=== PATIENT | male | born 1950 | race Hispanic/Latino ===

== ENCOUNTER 2017-11-06 17:39 | Inpatient (IN) | payer MEDICARE, OTHER ==
--- NOTE | 2017-11-06 18:34 | ED PDOC ---
Arrival/HPI - General Time Seen by Provider: 11/06/17 17:39 Historian: Patient - History of Present Illness Narrative History of Present Illness (Text): 11/06/17 18:37 A 67 year old male, whose past medical history includes renal insufficiency, was sent to the emergency department from Urologist, Dr. Chi, for evaluation. Patient had landaverde catheter placed in office for chronic retention. Patient in the emergency department for IV fluids and observtaion for postobstructive diuresis. Patient denies any other complaints at this time. 11/06/17 20:16 Symptom Onset: Sudden Symptom Course: Unchanged Activities at Onset: Rest Associated Symptoms (Text): none Past Medical History - Provider Review Nursing Documentation Reviewed: Yes Family/Social History - Physician Review Nursing Documentation Reviewed: Yes Family/Social History: No Known Family HX Allergies/Home Meds Allergies/Adverse Reactions: Allergies No Known Allergies Allergy (Verified 11/06/17 18:30) Review of Systems - Physician Review All systems were reviewed & negative as marked: Yes - Review of Systems Gastrointestinal: absent: Abdominal Pain Genitourinary Male: Other (chronic retention) Physical Exam Vital Signs Reviewed: Yes Vital Signs Temp Pulse Resp BP Pulse Ox 11/06/17 21:35 90 18 133/80 99 11/06/17 18:30 98.7 F 99 H 16 167/108 H 99 Appearance: Positive for: Well-Appearing, Non-Toxic, Comfortable Pain Distress: None Mental Status: Positive for: Alert and Oriented X 3 - Systems Exam Head: Present: Atraumatic, Normocephalic Pupils: Present: PERRL Extroacular Muscles: Present: EOMI Conjunctiva: Present: Normal Mouth: Present: Moist Mucous Membranes Neck: Present: Normal Range of Motion Respiratory/Chest: Present: Clear to Auscultation, Good Air Exchange. No: Respiratory Distress, Accessory Muscle Use Cardiovascular: Present: Regular Rate and Rhythm, Normal S1, S2. No: Murmurs Abdomen: Present: Normal Bowel Sounds. No: Tenderness, Distention, Peritoneal Signs Back: Present: Normal Inspection Upper Extremity: Present: Normal Inspection. No: Cyanosis, Edema Lower Extremity: Present: Normal Inspection, Other (leg bag with bloody urine). No: Edema Neurological: Present: GCS=15, CN II-XII Intact, Speech Normal Skin: Present: Warm, Dry, Normal Color. No: Rashes Psychiatric: Present: Alert, Oriented x 3, Normal Insight, Normal Concentration Medical Decision Making ED Course and Treatment: 11/06/17 18:31 Impression: A 67 year old male sent from Urologist from evaluation. Patient has landaverde catheter placed in office for chronic retention. Plan: -- labs -- Urinalysis -- IV fluids -- Reassess and disposition Progress Notes: - Lab Interpretations Microbiology Results: Microbiology Results 11/06/17 12:21 Urine,Clean Catch Urine Culture - Final No Growth (<1,000 CFU/ML) Lab Results: 11/07/17 06:30 11/07/17 06:30 Lab Results 11/07/17 06:30: Sodium 140, Potassium 4.8, Chloride 111 H, Carbon Dioxide 19 L, Anion Gap 15, BUN 56 H, Creatinine 5.0 H, Est GFR ( Amer) 14, Est GFR ( Non-Af Amer) 12, Random Glucose 100, Calcium 8.4, Phosphorus 4.4, Magnesium 2.0 , Total Bilirubin 0.5, AST 32, ALT 27, Alkaline Phosphatase 60, Total Protein 6.6, Albumin 3.6, Globulin 3.0, Albumin/Globulin Ratio 1.2 11/07/17 06:30: WBC 8.3 D, RBC 4.32, Hgb 12.0 L, Hct 37.5 L, MCV 86.8, MCH 27.8 , MCHC 32.0, RDW 13.3, Plt Count 137, MPV 10.0, Gran % 77.7 H, Lymph % (Auto) 14.7 L, [place] % (Auto) 7.0 H, Eos % (Auto) 0.4 L, Baso % (Auto) 0.2, Gran # 6.48 , Lymph # 1.2, [place] # 0.6, Eos # 0.0, Baso # 0.02 11/07/17 02:45: Urine Osmolality 343, Ur Random Creatinine 35, Ur Random Sodium 111, Ur Random Potassium 24.6 11/06/17 19:26: Urine Color Red, Urine Appearance Turbid, Urine pH 7.5, Ur Specific [place] 1.015, Urine Protein >=300 H, Urine Glucose (UA) 100 H, Urine Ketones Trace H, Urine Blood Large H, Urine Nitrate Negative, Urine Bilirubin Negative, Urine Urobilinogen 1.0 H, Ur Leukocyte Esterase Small H, Urine RBC Tntc, Urine WBC 2 - 5, Ur Epithelial Cells 1 - 3 11/06/17 18:49: Sodium 141, Potassium 4.8, Chloride 106, Carbon Dioxide 22, Anion Gap 18, BUN 59 H, Creatinine 5.0 H, Est GFR ( Amer) 14, Est GFR ( Non-Af Amer) 12, Random Glucose 101, Calcium 9.0, Total Bilirubin 0.4, AST 16 L , ALT 30, Alkaline Phosphatase 67, Total Protein 7.5, Albumin 4.3, Globulin 3.2 , Albumin/Globulin Ratio 1.3 11/06/17 18:49: PT 10.9, INR 1.00, APTT 25.7 11/06/17 18:49: WBC 5.3, RBC 4.53, Hgb 12.7 L, Hct 39.7 L, MCV 87.6, MCH 28.0, MCHC 32.0, RDW 13.4, Plt Count 134, MPV 9.5, Gran % 68.8 H, Lymph % (Auto) 21.2 L, [place] % (Auto) 7.9 H, Eos % (Auto) 1.7, Baso % (Auto) 0.4, Gran # 3.67, Lymph # 1.1 L, [place] # 0.4, Eos # 0.1, Baso # 0.02 11/06/17 18:23: Serum Osmolality 315 H I have reviewed the lab results: Yes - Medication Orders Current Medication Orders: Discontinued Medications Amlodipine Besylate (Norvasc) 5 mg PO DAILY [facility] Last Admin: 11/08/17 09:43 Dose: 5 mg Famotidine (Pepcid) 20 mg PO 1000,2200 [facility] Last Admin: 11/08/17 09:43 Dose: 20 mg Hydralazine HCl (Apresoline) 5 mg IVP Q6H PRN PRN Reason: SBP>180 Last Admin: 11/07/17 00:29 Dose: 5 mg IVP Administration Document 11/07/17 00:29 (Rec: 11/07/17 00:31 [id number] Charges for Administration # of IVP Administrations 1 JAN Pulse and Blood Pressure Document 11/07/17 00:29 (Rec: 11/07/17 00:31 [place] [id number]) Pulse Pulse Rate (60-90) 98 Blood Pressure Blood Pressure (100/60-150/90) 184/99 Sodium Chloride (Sodium Chloride 0.9%) 1,000 mls @ 100 mls/hr IV .Q10H [facility] Last Admin: 11/07/17 14:59 Dose: Sodium Chloride (Sodium Chloride 0.9%) 1,000 mls @ 100 mls/hr IV .Q10H [facility] Last Admin: 11/07/17 14:58 Dose: 100 mls/hr eMAR Start Stop Document 11/07/17 14:58 LMN (Rec: 11/07/17 14:58 LMN [id number]) Intravenous Solution Start Date 11/07/17 Start Time 06:30 Ceftriaxone Sodium 1 gm/ (Sodium Chloride) 100 mls @ 100 mls/hr IVPB Q24H [facility] PRN Reason: Protocol Last Admin: 11/07/17 15:34 Dose: 100 mls/hr eMAR Start Stop Document 11/07/17 15:34 LMN (Rec: 11/07/17 15:36 LMN [id number]) Intravenous Solution Start Date 11/07/17 Start Time 15:34 Sodium Chloride (Sodium Chloride 0.45%) 1,000 mls @ 100 mls/hr IV .Q10H [facility] Last Admin: 11/07/17 16:42 Dose: 100 mls/hr eMAR Start Stop Document 11/07/17 16:42 LMN (Rec: 11/07/17 16:43 LMN [id number]) Intravenous Solution Start Date 11/07/17 Start Time 16:43 - Scribe Statement The provider has reviewed the documentation as recorded by the Ajit Wynne Provider Scribe Attestation: All medical record entries made by the Scribadrianne were at my direction and personally dictated by me. I have reviewed the chart and agree that the record accurately reflects my personal performance of the history, physical exam, medical decision making, and the department course for this patient. I have also personally directed, reviewed, and agree with the discharge instructions and disposition. Disposition/Present on Arrival - Present on Arrival Any Indicators Present on Arrival: No - Disposition Have Diagnosis and Disposition been Completed?: Yes Diagnosis: Urinary retention, Renal insufficiency Disposition: HOSPITALIZED Disposition Time: 07:30 Condition: STABLE
[2017-11-06] MEDS: Sodium Chloride 0.9% 1,000 ML IV SCH (18:58)
[2017-11-06 19:03] LABS: BASO # 0.02 K/mm3 (0.0-2.0); BASO % 0.4 % (0.0-3.0); EOS # 0.1 (0.0-0.7); EOS % 1.7 % (1.5-5.0); GRAN # 3.67 (1.4-6.5); GRAN % 68.8 % (50.0-68.0); HEMOGLOBIN 12.7 g/dL (14.0-18.0); LYMPH # 1.1 (1.2-3.4); LYMPH % 21.2 % (22.0-35.0); MEAN CELL VOLUME 87.6 fl (80.0-105.0); MEAN PLATELET VOLUME 9.5 fl (7.0-11.0); MONO # 0.4 (0.1-0.6); MONO % 7.9 % (1.0-6.0); RBC 4.53 10^6/uL (3.5-6.1); RED CELL DISTRIBUTION WIDTH 13.4 % (11.5-14.5); WHITE BLOOD COUNT 5.3 10^3/ul (4.5-11.0)
[2017-11-06 19:20] LABS: PROTHROMBIN TIME 10.9 SECONDS (9.4-12.5)
[2017-11-06 19:21] LABS: PARTIAL THROMBOPLASTIN TIME 25.7 Seconds (25.1-36.5)
[2017-11-06 19:45] LABS: ALB/GLOB RATIO 1.3 (1.1-1.8); ALBUMIN 4.3 g/dL (3.0-4.8)
[2017-11-06 19:47] LABS: PH,URINE 7.5 (4.7-8.0); URINE APPEARANCE TURBID (CLEAR); URINE BILIRUBIN NEGATIVE (NEGATIVE); URINE BLOOD LARGE (NEGATIVE); URINE COLOR RED (YELLOW); URINE GLUCOSE (UA) 100 mg/dL (NEGATIVE); URINE LEUKOCYTE ESTERASE SMALL Leu/uL (NEGATIVE); URINE PROTEIN >=300 mg/dL (<30 mg/dL)
[2017-11-06] MEDS ORDERED: cefTRIAXone 2 GM IN NS 2 GM/100 ML BAG IVPB STA (19:48)
[2017-11-06 19:51] LABS: URINE NITRATE NEGATIVE (NEGATIVE); URINE RBC TNTC /hpf (0-2)
--- NOTE | 2017-11-06 21:01 | CP.PCM.HP ---
<Lorraine Harvey - Last Filed: 11/06/17 20:54> History of Present Illness - History of Present Illness History of Present Illness: Lorraine Harvey DO PGY1 - Internal Medicine H&P CC: s/p landaverde placement for obstruction HPI: 67 yo M with no known PMH presents after placement of landaverde catheter in outpatient urologists office. He reports that about 2 months ago, he was feeling fatigued and weak, and went to see a doctor (Dr. Guzmán) for the first time in 50 years. He had a blood test at that time and was told he had kidney disease, and was sent to a plate mill hand (Dr. Amezquita) who ordered a renal ultrasound. The ultrasound showed urinary retention, and he was then referred to a urologist (Dr. Chi) who he saw for the first time today, and had landaverde placed and sent to the hospital. Currently, he denies any fever, chills, dysuria, abdominal pain, back pain, nausea, vomiting, diarrhea, constipation. He also denies chest pain, shortness of breath, palpitations, headache. Remaineder of 12 point ROS was negative. PMH: Denies PSH: Vasectomy 1970 Soc: 47 PYH, current active smoker. Drinks 5 cans of beer 1-2 times weekly. Denies IVDU, prior cocaine use many years ago. FHx: Father with HTN and renal failure. Multiple family members with DM and HTN. All: NKDA Present on Admission - Present on Admission Any Indicators Present on Admission: Yes History of DVT/PE: No History of Uncontrolled Diabetes: No Urinary Catheter: Yes (Placed today) Decubitus Ulcer Present: No Past Patient History - Past Social History Smoking Status: Smoker Currrent Status Unknown - CARDIAC Hx Cardiac Disorders: No - PULMONARY Hx Respiratory Disorders: No - NEUROLOGICAL Hx Neurological Disorder: No - HEENT Hx HEENT Problems: No - RENAL Hx Chronic Kidney Disease: Yes - ENDOCRINE/METABOLIC Hx Endocrine Disorders: No - HEMATOLOGICAL/ONCOLOGICAL Hx Blood Disorders: No - INTEGUMENTARY Hx Dermatological Problems: No - MUSCULOSKELETAL/RHEUMATOLOGICAL Hx Musculoskeletal Disorders: No - GASTROINTESTINAL Hx Gastrointestinal Disorders: No - GENITOURINARY/GYNECOLOGICAL Hx Genitourinary Disorders: Yes Other/Comment: URINE RETENTION - PSYCHIATRIC Hx Psychophysiologic Disorder: No Hx Substance Use: No - SURGICAL HISTORY Hx Surgeries: No Meds Allergies/Adverse Reactions: Allergies Allergy/AdvReac Type Severity Reaction Status Date / Time No Known Allergies Allergy Verified 11/06/17 18:30 Physical Exam - Constitutional Appears: Non-toxic, No Acute Distress - Head Exam Head Exam: ATRAUMATIC, NORMOCEPHALIC - Eye Exam Eye Exam: EOMI, Normal appearance, PERRL. absent: Periorbital swelling - ENT Exam ENT Exam: Mucous Membranes Moist - Neck Exam Neck exam: Positive for: Normal Inspection - Respiratory Exam Respiratory Exam: Clear to Auscultation Bilateral, NORMAL BREATHING PATTERN - Cardiovascular Exam Cardiovascular Exam: REGULAR RHYTHM, +S1, +S2. absent: Bradycardia, Tachycardia , JVD - GI/Abdominal Exam GI & Abdominal Exam: Normal Bowel Sounds, Soft, Tenderness (suprapubic tenderness). absent: Distended, Firm, Guarding, Organomegaly, Rebound, Rigid - Exam Additional comments: Landaverde catheter in place, draining grossly bloody urine - Extremities Exam Extremities exam: Positive for: normal inspection, pedal pulses present. Negative for: calf tenderness, pedal edema - Back Exam Back exam: NORMAL INSPECTION. absent: CVA tenderness (L), CVA tenderness (R) - Neurological Exam Neurological exam: Alert, Oriented x3 - Psychiatric Exam Psychiatric exam: Normal Affect, Normal Mood - Skin Skin Exam: Dry, Intact, Normal Color Results - Vital Signs Recent Vital Signs: Last Vital Signs Temp 98.7 F 11/06/17 18:30 Pulse 99 H 11/06/17 18:30 Resp 16 11/06/17 18:30 BP 167/108 H 11/06/17 18:30 Pulse Ox 99 11/06/17 18:30 - Labs Result Diagrams: 11/06/17 18:49 11/06/17 18:49 Labs: Laboratory Results - last 24 hr 11/06/17 11/06/17 11/06/17 18:49 18:49 18:49 WBC 5.3 RBC 4.53 Hgb 12.7 L Hct 39.7 L MCV 87.6 MCH 28.0 MCHC 32.0 RDW 13.4 Plt Count 134 MPV 9.5 Gran % 68.8 H Lymph % (Auto) 21.2 L [place] % (Auto) 7.9 H Eos % (Auto) 1.7 Baso % (Auto) 0.4 Gran # 3.67 Lymph # 1.1 L [place] # 0.4 Eos # 0.1 Baso # 0.02 PT 10.9 INR 1.00 APTT 25.7 Sodium 141 Potassium 4.8 Chloride 106 Carbon Dioxide 22 Anion Gap 18 BUN 59 H Creatinine 5.0 H Est GFR ( Amer) 14 Est GFR (Non-Af Amer) 12 Random Glucose 101 Calcium 9.0 Total Bilirubin 0.4 AST 16 L ALT 30 Alkaline Phosphatase 67 Total Protein 7.5 Albumin 4.3 Globulin 3.2 Albumin/Globulin Ratio 1.3 Urine Color Urine Appearance Urine pH Ur Specific [place] Urine Protein Urine Glucose (UA) Urine Ketones Urine Blood Urine Nitrate Urine Bilirubin Urine Urobilinogen Ur Leukocyte Esterase Urine RBC Urine WBC Ur Epithelial Cells 11/06/17 19:26 WBC RBC Hgb Hct MCV MCH MCHC RDW Plt Count MPV Gran % Lymph % (Auto) [place] % (Auto) Eos % (Auto) Baso % (Auto) Gran # Lymph # [place] # Eos # Baso # PT INR APTT Sodium Potassium Chloride Carbon Dioxide Anion Gap BUN Creatinine Est GFR ( Amer) Est GFR (Non-Af Amer) Random Glucose Calcium Total Bilirubin AST ALT Alkaline Phosphatase Total Protein Albumin Globulin Albumin/Globulin Ratio Urine Color Red Urine Appearance Turbid Urine pH 7.5 Ur Specific [place] 1.015 Urine Protein >=300 H Urine Glucose (UA) 100 H Urine Ketones Trace H Urine Blood Large H Urine Nitrate Negative Urine Bilirubin Negative Urine Urobilinogen 1.0 H Ur Leukocyte Esterase Small H Urine RBC Tntc Urine WBC 2 - 5 Ur Epithelial Cells 1 - 3 Assessment & Plan - Assessment and Plan (Free Text) Assessment: 67 yo M with no known PMH presents s/p landaverde placement for urinary retention and bladder outlet obstruction; also noted to be hypertensive and with elevated creatinine Plan Bladder outlet obstruction s/p landaverde placement - Gross hematuria noted, likely traumatic - Continue to monitor for resolution of hematuria - Avoid anticoagulation; SCD for DVT ppx - UA and UCx ordered; LE positive, but unlikely to have UTI, patient denies dysuria, frequency, urgency, fever/chills, without leukocytosis - Urology consult requested, appreciate recs Renal failure - Patient presents with Cr 5, eGFR <15; Stage V CKD - Likely multifactorial, intrarenal and postrenal in nature - Urine electrolytes, osmolality, and creatinine, and serum osmolality ordered to calculate FeNa - Recheck renal function with AM labs - Patient had renal US prior to admission, reportedly showed urinary retention - Renal diet - Monitor strict I&O - Nephrology consult requested, appreciate recs Elevated BP without prior diagnosis of HTN - Patient moderately hypertensive on admission - Will continue to monitor BP overnight and in AM; consider starting antihypertensive if no improvement in BP - Hydralazine 5mg IV Q6h PRN for SBP >180, hold if HR >110 DVT Ppx: SCDs GI Ppx not indicated Patient seen, discussed, and reviewed with attending Dr. Holloway <Amie VELEZ,[facility] - Last Filed: 11/07/17 14:02> Results - Vital Signs Recent Vital Signs: Last Vital Signs Temp 98.7 F 11/07/17 09:22 Pulse 98 H 11/07/17 09:22 Resp 18 11/07/17 09:22 BP 158/96 H 11/07/17 09:22 Pulse Ox 99 11/07/17 09:22 - Labs Result Diagrams: 11/07/17 06:30 11/07/17 06:30 Labs: Laboratory Results - last 24 hr 11/07/17 11/07/17 11/07/17 02:45 06:30 06:30 WBC 8.3 D RBC 4.32 Hgb 12.0 L Hct 37.5 L MCV 86.8 MCH 27.8 MCHC 32.0 RDW 13.3 Plt Count 137 MPV 10.0 Gran % 77.7 H Lymph % (Auto) 14.7 L [place] % (Auto) 7.0 H Eos % (Auto) 0.4 L Baso % (Auto) 0.2 Gran # 6.48 Lymph # 1.2 [place] # 0.6 Eos # 0.0 Baso # 0.02 Sodium 140 Potassium 4.8 Chloride 111 H Carbon Dioxide 19 L Anion Gap 15 BUN 56 H Creatinine 5.0 H Est GFR ( Amer) 14 Est GFR (Non-Af Amer) 12 Random Glucose 100 Calcium 8.4 Phosphorus 4.4 Magnesium 2.0 Total Bilirubin 0.5 AST 32 ALT 27 Alkaline Phosphatase 60 Total Protein 6.6 Albumin 3.6 Globulin 3.0 Albumin/Globulin Ratio 1.2 Urine Osmolality 343 Ur Random Creatinine 35 Ur Random Sodium 111 Ur Random Potassium 24.6 Attending/Attestation - Attestation I have personally seen and examined this patient.: Yes I have fully participated in the care of the patient.: Yes I have reviewed all pertinent clinical information: Yes Notes (Text): -I agree with the above H&P completed by the resident physician with the following additions and/or changes: -The patient is a 67 year old man with no known past medical history, who recently had a Landaverde catheter placed by Dr. Chi for acute urinary retention and JARRET. Of note, the patient had not been to a physician in 50 years prior to this current incident. After placement of the Landaverde, Dr. Chi recommended for the patient to be admitted for observation to monitor for post-obstructive diuresis. Patient currently has hematuria and evidence of UTI. His RF is likely acute on chronic. Both renal and urology services have been consulted. Strict I/ O's will be monitored closely. All anticoagulation avoided given hematuria. Also , although the patient's BP was elevated on ED vitals, we will only start a PRN antihypertensive overnight, as patient has no formal diagnosis of HTN.
[2017-11-07] MEDS: Sodium Chloride 0.9% 1,000 ML IV SCH ×3 (00:43→14:59)
[2017-11-07 07:12] LABS: BASO # 0.02 K/mm3 (0.0-2.0); BASO % 0.2 % (0.0-3.0); EOS % 0.4 % (1.5-5.0); GRAN # 6.48 (1.4-6.5); GRAN % 77.7 % (50.0-68.0); LYMPH # 1.2 (1.2-3.4); LYMPH % 14.7 % (22.0-35.0); MEAN CELL VOLUME 86.8 fl (80.0-105.0); MEAN CORPUSCULAR HEMOGLOBIN 27.8 pg (25.0-35.0); MONO # 0.6 (0.1-0.6); RBC 4.32 10^6/uL (3.5-6.1); RED CELL DISTRIBUTION WIDTH 13.3 % (11.5-14.5); WHITE BLOOD COUNT 8.3 10^3/ul (4.5-11.0)
[2017-11-07 07:35] LABS: ALB/GLOB RATIO 1.2 (1.1-1.8); ALBUMIN 3.6 g/dL (3.0-4.8); CALCIUM 8.4 mg/dL (8.4-10.5)
--- NOTE | 2017-11-07 14:25 | CP.PCM.PN ---
Addendum entered and electronically signed by Olivier Holliday DO 11/07/17 14:48: Plan: Possible enlarged thyroid vs Cervical Lymphadenopathy -TSH with Free T4 Original Note: <Olivier Holliday - Last Filed: 11/07/17 14:17> Subjective - Date & Time of Evaluation Date of Evaluation: 11/07/17 Time of Evaluation: 11:45 - Subjective Subjective: Patient has been seen and examined. Patient is anxious to go home. No overnight events reported. Denies any fever, chills, chest pain, SOB, abdominal pain, suprapubic tenderness, CVA tenderness, or dysuria. Gross hematuria noted in landaverde catheter bag. Objective - Vital Signs/Intake and Output Vital Signs (last 24 hours): Temp Pulse Resp BP Pulse Ox 98.7 F 98 H 18 158/96 H 99 11/07/17 09:22 11/07/17 09:22 11/07/17 09:22 11/07/17 09:22 11/07/17 09:22 Intake and Output: 11/07/17 11/07/17 06:59 18:59 Intake Total 240 900 Output Total 1300 Balance -1060 900 - Medications Medications: Current Medications Famotidine (Pepcid) 20 mg PO 1000,2200 [facility] Last Admin: 11/07/17 09:51 Dose: 20 mg Hydralazine HCl (Apresoline) 5 mg IVP Q6H PRN PRN Reason: SBP>180 Last Admin: 11/07/17 00:29 Dose: 5 mg Sodium Chloride (Sodium Chloride 0.9%) 1,000 mls @ 100 mls/hr IV .Q10H [facility] Last Admin: 11/06/17 18:58 Dose: 100 mls/hr Sodium Chloride (Sodium Chloride 0.9%) 1,000 mls @ 100 mls/hr IV .Q10H [facility] Last Admin: 11/07/17 00:43 Dose: Not Given Ceftriaxone Sodium 1 gm/ (Sodium Chloride) 100 mls @ 100 mls/hr IVPB Q24H [facility] PRN Reason: Protocol - Labs Labs: 11/07/17 06:30 11/07/17 06:30 PT 10.9 SECONDS (9.4-12.5) 11/06/17 18:49 INR 1.00 (0.93-1.08) 11/06/17 18:49 APTT 25.7 Seconds (25.1-36.5) 11/06/17 18:49 - Constitutional Appears: Non-toxic, No Acute Distress - Head Exam Head Exam: ATRAUMATIC, NORMAL INSPECTION, NORMOCEPHALIC - Eye Exam Eye Exam: Normal appearance. absent: Periorbital swelling, Periorbital tenderness, Scleral icterus - ENT Exam ENT Exam: Mucous Membranes Moist - Neck Exam Neck Exam: Lymphadenopathy (Cervical), Thyromegaly (Possible vs. enlarged submandibular gland. ) - Respiratory Exam Respiratory Exam: Clear to Ausculation Bilateral, NORMAL BREATHING PATTERN. absent: Rales, Rhonchi, Wheezes, Stridor - Cardiovascular Exam Cardiovascular Exam: RRR, +S1, +S2. absent: Murmur - GI/Abdominal Exam GI & Abdominal Exam: Soft, Normal Bowel Sounds. absent: Distended, Tenderness - Exam Additional comments: Hematuria - Extremities Exam Extremities Exam: absent: Pedal Edema - Back Exam Back Exam: absent: CVA tenderness (L), CVA tenderness (R) - Neurological Exam Neurological Exam: Alert, Awake, Oriented x3 - Psychiatric Exam Psychiatric exam: Normal Affect, Normal Mood Additional comments: Poor insight into medical condition Assessment and Plan - Assessment and Plan (Free Text) Assessment: 67 yo M with no known PMH presents s/p landaverde placement for urinary retention and bladder outlet obstruction; also noted to be hypertensive and with elevated creatinine Plan: Bladder outlet obstruction s/p landaverde placement - Gross hematuria noted - Continue to monitor for resolution of hematuria - Avoid anticoagulation; SCD for DVT ppx - UA and UCx ordered; LE positive, but unlikely to have UTI, patient denies dysuria, frequency, urgency, fever/chills, without leukocytosis - Urology consult requested, appreciate recs - Urine Culture - PENDING Renal failure - Patient presents with Cr 5, eGFR <15; Stage V CKD - Likely multifactorial, intrarenal and postrenal in nature - (11/07/17) Urine Osmolality - 343, Urine Random Cr. 35, Urine Random Sodium - 111, Urine Random Potassium - 24.6. All WNL. - Cr still 5 - Patient had renal US prior to admission, reportedly showed urinary retention w / b/l hydronephrosis - Renal diet - Monitor strict I&O - Nephrology consult requested, appreciate recs -Recommended 1/2 NS with Bicarb for Fluis -Recommended Nuclear Renal Scan Elevated BP without prior diagnosis of HTN - Patient moderately hypertensive on admission - Will continue to monitor BP overnight and in AM; - Hydralazine 5mg IV Q6h PRN for SBP >180, hold if HR >110 - Consider starting antihypertensive if no improvement in BP DVT Ppx: SCDs GI Ppx not indicated Dispo: Patient will like need extended stay more than 24 hours. We will change to inpatient admission. Patient seen, discussed, and reviewed with attending Dr. Navarro Holliday PGY-1 <Pilar Briceño - Last Filed: 11/07/17 16:38> Objective - Vital Signs/Intake and Output Vital Signs (last 24 hours): Temp Pulse Resp BP Pulse Ox 98.7 F 98 H 18 158/96 H 99 11/07/17 09:22 11/07/17 09:22 11/07/17 09:22 11/07/17 09:22 11/07/17 09:22 Intake and Output: 11/07/17 11/07/17 06:59 18:59 Intake Total 240 2500 Output Total 1300 1425 Balance -1060 1075 - Medications Medications: Current Medications Amlodipine Besylate (Norvasc) 5 mg PO DAILY [facility] Famotidine (Pepcid) 20 mg PO 1000,2200 [facility] Last Admin: 11/07/17 09:51 Dose: 20 mg Hydralazine HCl (Apresoline) 5 mg IVP Q6H PRN PRN Reason: SBP>180 Last Admin: 11/07/17 00:29 Dose: 5 mg Ceftriaxone Sodium 1 gm/ (Sodium Chloride) 100 mls @ 100 mls/hr IVPB Q24H [facility] PRN Reason: Protocol Last Admin: 11/07/17 15:34 Dose: 100 mls/hr Sodium Chloride (Sodium Chloride 0.45%) 1,000 mls @ 100 mls/hr IV .Q10H [facility] - Labs Labs: 11/07/17 06:30 11/07/17 06:30 PT 10.9 SECONDS (9.4-12.5) 11/06/17 18:49 INR 1.00 (0.93-1.08) 11/06/17 18:49 APTT 25.7 Seconds (25.1-36.5) 11/06/17 18:49 Attending/Attestation - Attestation I have personally seen and examined this patient.: Yes I have fully participated in the care of the patient.: Yes I have reviewed all pertinent clinical information, including history, physical exam and plan: Yes Notes (Text): 11/07/17 16:33 67 year old male who was referred from his pmd to nephrology for kidney disease. From his sales and support center agent he was referred to urology for ?hydronephrosis on ultrasound. Urologist placed landaverde and sent to hospital for further workup. Nephrology and urology follow up are requested. Nuclear renal scan is ordered. Continue to monitor hematuria and continue with landaverde care per urology. Continue to monitor creatinine closely. He is on iv fluids. He is started on norvasc for hypertension. He is on ceftriaxone for UTI. Pilar Briceño MD Hospitalist.
[2017-11-07] MEDS ORDERED: Sodium Chloride 0.45% 1,000 ML IV SCH (16:15)
--- NOTE | 2017-11-08 00:48 | CON ---
DATE: 10/08/2017 REASON FOR CONSULTATION: Advanced renal insufficiency, obstructive uropathy. HISTORY OF PRESENT ILLNESS: A 67-year-old male previously unknown to me was sent to the Emergency Room from Dr. Chi's office after he put in a Medellin. Patient was initially referred to Dr. Amezquita because of an elevated creatinine. Workup showed that he had bilateral hydronephrosis. He was sent to urology, hence, he had a Medellin put in and was sent to the hospital. Patient reports that he has not seen a doctor in a long time prior to this evaluation. He denies any prostatic symptoms. He reports that his urine flow was fine. He denies any history of any hypertension or kidney disease. He denies any history of kidney stones. Workup was done by Dr. Amezquita as outpatient which revealed he has only minimal proteinuria of 50 mg per day, all his workup was negative except for elevated kappa and lambda chains. PAST MEDICAL AND SURGICAL HISTORY: Patient denies any history of hypertension, diabetes, heart disease. He reports that prior to August he never really went to a doctor for 40 years. FAMILY HISTORY: Noncontributory. SOCIAL HISTORY: He is a smoker, smoked one pack per day for about 40 years, no alcohol use, no IV drug abuse. ALLERGIES: NO KNOWN DRUG ALLERGIES. MEDICATIONS: None at home. REVIEW OF SYSTESM: All systems are reviewed, patient has no complaints. PHYSICAL EXAMINATION: GENERAL: Thinly built elderly male lying in bed in no acute distress. VITAL SIGNS: Blood pressure 158/96, heart rate 98, respiratory rate 18, temperature 98.7. HEENT: Normocephalic, atraumatic, positive pallor, no icterus. NECK: Supple, no JVD. LUNGS: Bilateral equal air entry, no rales. CARDIAC: S1, S2. Regular rate and rhythm, no murmur, no rub. ABDOMEN: Soft, nondistended, nontender, bowel sounds present. EXTREMITIES: No lower extremity edema. Catrachita Carbone MD
--- NOTE | 2017-11-08 02:09 | CON ---
ADDENDUM DATE: INTAKE AND OUTPUT: 8. LABORATORY DATA: WBC 8.3, hemoglobin 12, hematocrit 37.5, platelets 137. Sodium 140, potassium 4.8, chloride 111, CO2 of 19, BUN 56, creatinine 5.0, glucose 100, calcium 8.4, phosphorus 4.4, magnesium 2.0, albumin 3.6. Urinalysis, red, turbid, pH 7.5, specific gravity 1.015, protein greater than 300, glucose 100, ketones trace, blood large, leukocyte esterase small, wbc's 2 to 5, rbc's too numerous to count. Urine sodium 111, urine creatinine 35. CURRENT MEDICATIONS: Hydralazine 5 mg IV push q.6 p.r.n., ceftriaxone 1 g daily, Pepcid, half-normal saline with 50 mEq sodium bicarbonate started at 100 mL per hour. ASSESSMENT AND PLAN: 1. Obstructive uropathy, outpatient ultrasound showed bilateral hydronephrosis, thinning of the cortex on both sides. 2. Suspect chronic obstructive uropathy, bilateral hydronephrosis. 3. No evidence of anemia of chronic kidney disease. 4. No evidence of secondary hyperparathyroidism. 5. Hypertension, the patient gives no history of hypertension. PLAN: 1. Amlodipine 5 mg daily. 2. IV fluids. 3. Monitor urine output closely. 4. No indication for renal replacement therapy at this time. No uremic signs or symptoms. 5. Renal scan to check function in both kidneys. 6. Urology evaluation. 7. Further recommendations as renal function improves hopefully. Catrachita Carbone MD
[2017-11-08 02:45] VITALS: RESP 18; O2SAT 99
[2017-11-08 08:02] LABS: BASO # 0.02 K/mm3 (0.0-2.0); BASO % 0.3 % (0.0-3.0); EOS # 0.2 (0.0-0.7); EOS % 2.8 % (1.5-5.0); GRAN # 4.55 (1.4-6.5); GRAN % 69.9 % (50.0-68.0); HEMOGLOBIN 12.1 g/dL (14.0-18.0); LYMPH # 1.1 (1.2-3.4); LYMPH % 16.2 % (22.0-35.0); MEAN CELL VOLUME 86.7 fl (80.0-105.0); MEAN CORPUSCULAR HEMOGLOBIN 28.1 pg (25.0-35.0); MEAN CORPUSCULAR HGB CONC 32.4 g/dl (31.0-37.0); MEAN PLATELET VOLUME 9.7 fl (7.0-11.0); MONO # 0.7 (0.1-0.6); MONO % 10.8 % (1.0-6.0); RBC 4.3 10^6/uL (3.5-6.1); RED CELL DISTRIBUTION WIDTH 13.4 % (11.5-14.5); WHITE BLOOD COUNT 6.5 10^3/ul (4.5-11.0)
[2017-11-08 08:24] LABS: ALB/GLOB RATIO 1.2 (1.1-1.8); ALBUMIN 3.4 g/dL (3.0-4.8); CALCIUM 8.7 mg/dL (8.4-10.5)
[2017-11-08 08:30] LABS: FREE T4 1.08 ng/dL (0.78-2.19)
--- NOTE | 2017-11-08 10:28 | PN ---
DATE: SUBJECTIVE: The patient is currently seen sitting at the side of bed on 5R. He is anxiously awaiting to be discharged. Since placement of Medellin catheter, he has bloody urine. His blood pressure control has been suboptimal, but he is asymptomatic. The patient is very anxious and would like to go home. CURRENT MEDICATIONS: Medications reviewed. The patient is on p.r.n. IV hydralazine, ceftriaxone, Norvasc, Pepcid, and half-normal saline at 100 mL an hour. OBJECTIVE: INTAKE AND OUTPUT: Intake 540 plus output 1300. The patient has an indwelling Medellin catheter. VITAL SIGNS: Blood pressure ranging from 147-163 systolic, diastolics ranging from 88-98. Heart rate 95, temperature 98.1, and respiratory rate 18 with the pulse ox of 99%. HEENT: Exam shows him to be normocephalic, atraumatic. Conjunctivae are pink. Sclerae nonicteric. NECK: Supple. No neck vein distention. CHEST: Clear to auscultation and percussion. No rales or rhonchi or wheezing. CARDIOVASCULAR: Shows a regular rate and rhythm without murmurs, rubs or gallops. ABDOMEN: Soft. Bowel sounds normal. No bladder distention. No rebound or guarding. GENITOURINARY: The patient has an indwelling Medellin catheter. EXTREMITIES: Show no cyanosis, clubbing or edema. LABORATORY DATA AND IMAGING STUDIES: No imaging studies done in the outpatient setting. The patient had bilateral hydronephrosis on his renal ultrasound with what was felt to be chronic obstructive uropathy. CBC: White blood cell count today 6.5, hemoglobin 12.1, and platelet count is 134,000. Coags are normal. Chemistry showed normal electrolytes. CO2 slightly lower at 18. BUN is 52 with creatinine of 5.3, which is within his baseline range. Glucose is 92. Liver enzymes are normal. Thyroid function tests are normal. Urine show gross hematuria, proteinuria, white blood cells in the urine are 2-5. Urine cultures are negative. ASSESSMENT: 1. Obstructive uropathy: The patient's outside renal ultrasound showed bilateral hydronephrosis with thinning of the cortex bilaterally. This is all consistent with chronic obstructive uropathy. The patient was referred to Urology appropriately. Medellin catheter was placed because of urinary retention. I discussed this with Dr. Chi prior to the patient coming to the hospital. The patient will need further urological evaluation. The patient states that Dr. Chi will be retiring at the end of next week and his partner will be handling his case. 2. Advanced chronic kidney disease likely chronic kidney disease stage 4 to 5: The patient has no uremic symptoms, no indication for renal replacement therapy at this time. 3. Hypertension: No past history of hypertension, but related to anxiety of what is going on, the patient's blood pressure is higher. Agree with decision to start the patient on Norvasc. We can further titrate blood pressure control in the outpatient setting. He does not need to remain inpatient for this. 4. Normal phosphorus level. No evidence so far for secondary hyperparathyroidism. PLAN: 1. Continue amlodipine and p.r.n. clonidine for blood pressure elevations. 2. Awaiting definitive evaluation and plan. The patient is upset. He was told he needed to be observed for 4 hours post placement of the Medellin and now he is in the hospital for second day. 3. Renal scan ordered this is pending. This can be done as an outpatient. 4. From my standpoint, IV fluids can be discontinued as long as oral intake is adequate. 5. Continue renal diet. 6. We will discuss with Dr. Briceño to try and facilitate early discharge for the patient so he could be home for the holidays. Roger Amezquita MD
[2017-11-08 11:28] VITALS: BP 149/86; PULSE 82; TEMP 98.2
--- NOTE | 2017-11-09 22:24 | CP.PCM.DIS ---
<Rosanne Miller - Last Filed: 11/10/17 18:16> Provider - Provider Date of Admission: 11/07/17 14:54 Attending physician: Pilar Briceño MD Primary care physician: Dionte Mg MD Consults: Renal: Tona/Analy Urology: Kadie/Alon Time Spent in preparation of Discharge (in minutes): 35 Diagnosis - Discharge Diagnosis (1) Landaverde catheter in place Status: Acute (2) Hematuria Status: Acute (3) Renal insufficiency Status: Acute (4) Urinary retention Status: Acute Hospital Course - Lab Results Lab Results: Most Recent Lab Values WBC 6.5 10^3/ul (4.5-11.0) D 11/08/17 07:30 RBC 4.30 10^6/uL (3.5-6.1) 11/08/17 07:30 Hgb 12.1 g/dL (14.0-18.0) L 11/08/17 07:30 Hct 37.3 % (42.0-52.0) L 11/08/17 07:30 MCV 86.7 fl (80.0-105.0) 11/08/17 07:30 MCH 28.1 pg (25.0-35.0) 11/08/17 07:30 MCHC 32.4 g/dl (31.0-37.0) 11/08/17 07:30 RDW 13.4 % (11.5-14.5) 11/08/17 07:30 Plt Count 134 10^3/uL (120.0-450.0) 11/08/17 07:30 MPV 9.7 fl (7.0-11.0) 11/08/17 07:30 Gran % 69.9 % (50.0-68.0) H 11/08/17 07:30 Lymph % (Auto) 16.2 % (22.0-35.0) L 11/08/17 07:30 Wilkes % (Auto) 10.8 % (1.0-6.0) H 11/08/17 07:30 Eos % (Auto) 2.8 % (1.5-5.0) 11/08/17 07:30 Baso % (Auto) 0.3 % (0.0-3.0) 11/08/17 07:30 Gran # 4.55 (1.4-6.5) 11/08/17 07:30 Lymph # 1.1 (1.2-3.4) L 11/08/17 07:30 Wilkes # 0.7 (0.1-0.6) H 11/08/17 07:30 Eos # 0.2 (0.0-0.7) 11/08/17 07:30 Baso # 0.02 K/mm3 (0.0-2.0) 11/08/17 07:30 PT 10.9 SECONDS (9.4-12.5) 11/06/17 18:49 INR 1.00 (0.93-1.08) 11/06/17 18:49 APTT 25.7 Seconds (25.1-36.5) 11/06/17 18:49 Sodium 140 mmol/L (132-148) 11/08/17 07:30 Potassium 4.7 mmol/L (3.6-5.0) 11/08/17 07:30 Chloride 110 mmol/L (98-107) H 11/08/17 07:30 Carbon Dioxide 18 mmol/L (21-33) L 11/08/17 07:30 Anion Gap 16 (10-20) 11/08/17 07:30 BUN 52 mg/dL (7-21) H 11/08/17 07:30 Creatinine 5.3 mg/dl (0.8-1.5) H 11/08/17 07:30 Est GFR ( Amer) 13 11/08/17 07:30 Est GFR (Non-Af Amer) 11 11/08/17 07:30 Random Glucose 92 mg/dL (70-110) 11/08/17 07:30 Serum Osmolality 315 mosm/kg (272-300) H 11/06/17 18:23 Calcium 8.7 mg/dL (8.4-10.5) 11/08/17 07:30 Phosphorus 4.4 mg/dL (2.5-4.5) 11/07/17 06:30 Magnesium 2.0 mg/dL (1.7-2.2) 11/07/17 06:30 Total Bilirubin 0.4 mg/dL (0.2-1.3) 11/08/17 07:30 AST 18 U/L (17-59) 11/08/17 07:30 ALT 24 U/L (7-56) 11/08/17 07:30 Alkaline Phosphatase 48 U/L (38-126) 11/08/17 07:30 Total Protein 6.4 g/dL (5.8-8.3) 11/08/17 07:30 Albumin 3.4 g/dL (3.0-4.8) 11/08/17 07:30 Globulin 2.9 gm/dL 11/08/17 07:30 Albumin/Globulin Ratio 1.2 (1.1-1.8) 11/08/17 07:30 Free T4 1.08 ng/dL (0.78-2.19) 11/08/17 07:30 TSH 3rd Generation 0.71 mIU/mL (0.46-4.68) 11/08/17 07:30 Urine Color Red (YELLOW) 11/06/17 19:26 Urine Appearance Turbid (CLEAR) 11/06/17 19:26 Urine pH 7.5 (4.7-8.0) 11/06/17 19:26 Ur Specific Celoron 1.015 (1.005-1.035) 11/06/17 19:26 Urine Protein >=300 mg/dL (<30 mg/dL) H 11/06/17 19:26 Urine Glucose (UA) 100 mg/dL (NEGATIVE) H 11/06/17 19:26 Urine Ketones Trace mg/dL (NEGATIVE) H 11/06/17 19:26 Urine Blood Large (NEGATIVE) H 11/06/17 19:26 Urine Nitrate Negative (NEGATIVE) 11/06/17 19: Urine Bilirubin Negative (NEGATIVE) 11/06/17 19:26 Urine Urobilinogen 1.0 E.U./dL (<1 E.U./dL) H 11/06/17 19:26 Ur Leukocyte Esterase Small Luly/uL (NEGATIVE) H 11/06/17 19:26 Urine RBC Tntc /hpf (0-2) 11/06/17 19:26 Urine WBC 2 - 5 /hpf (0-6) 11/06/17 19:26 Ur Epithelial Cells 1 - 3 /hpf (0-5) 11/06/17 19:26 Urine Osmolality 343 mosm/kg (300-1000) 11/07/17 02:45 Ur Random Creatinine 35 mg/dL 11/07/17 02:45 Ur Random Sodium 111 meq/L 11/07/17 02:45 Ur Random Potassium 24.6 meq/L 11/07/17 02:45 - Hospital Course Hospital Course: Discharge Summary for patient discharged on 11/08/17: 67 yo male with no known PMH presents after placement of landaverde catheter in outpatient urologists office with hematuria. He reports that about 2 months ago , he was feeling fatigued and weak, and went to see a doctor (Dr. Guzmán) for the first time in 50 years. He had a blood test at that time and was told he had kidney disease, and was sent to a building maintenance repairer (Dr. Amezquita) who ordered a renal ultrasound. The ultrasound showed urinary retention, and he was then referred to a urologist (Dr. Chi) who he saw for the first time today, and had landaverde placed and sent to the hospital. Currently, he denies any fever, chills, dysuria, abdominal pain, back pain, nausea, vomiting, diarrhea, constipation. He also denies chest pain, shortness of breath, palpitations, headache. Patient afebrile, hemodynamically stable, noted to have high BUN/Cr 58/5. Renal US prior to admission showed b/l hydronephrosis, cause thought to be bladder outlet obstruction, postobstructive uropathy. UA and urine culture were found to be negative. Dr Beckford (Renal) saw the patient, and is okay following him outpatient (no aucte interventions indicated as this is a chronic issue). Dr Engle talked to the patient as well, and was okay with discharging him with a landaverde catheter and to follow him outpatient. Discussed with Dr Briceño Discharge Exam - Additional Findings Additional findings: - Constitutional Appears: Non-toxic, No Acute Distress - Head Exam Head Exam: ATRAUMATIC, NORMAL INSPECTION, NORMOCEPHALIC - Eye Exam Eye Exam: Normal appearance. absent: Periorbital swelling, Periorbital tenderness, Scleral icterus - ENT Exam ENT Exam: Mucous Membranes Moist - Neck Exam Neck Exam: Normal - Respiratory Exam Respiratory Exam: Clear to Ausculation Bilateral, NORMAL BREATHING PATTERN. absent: Rales, Rhonchi, Wheezes, Stridor - Cardiovascular Exam Cardiovascular Exam: RRR, +S1, +S2. absent: Murmur - GI/Abdominal Exam GI & Abdominal Exam: Soft, Normal Bowel Sounds. absent: Distended, Tenderness - Exam Additional comments: Hematuria in landaverde cath - Extremities Exam Extremities Exam: absent: Pedal Edema - Back Exam Back Exam: absent: CVA tenderness (L), CVA tenderness (R) - Neurological Exam Neurological Exam: Alert, Awake, Oriented x3 - Psychiatric Exam Psychiatric exam: Normal Affect, Normal Mood Discharge Plan - Discharge Medications Prescriptions: amLODIPine [Norvasc] 5 mg PO DAILY 30 Days tab - Follow Up Plan Condition: STABLE Disposition: HOME/ ROUTINE Patient education suggested?: Yes Instructions: Renal Failure Diet (DC), Landaverde Catheter Placement and Care (DC), Acute Hematuria (DC), Low Sodium Diet (DC), Hypertension (DC), Hydronephrosis ( DC), Urinary Leg Bag (GEN), Impaired Kidney Function (DC) Additional Instructions: - You are discharged with a landaverde catheter. Please maintain aseptic technique in caring for it. Maintain as indicated by Dr Engle. - Your blood pressure was noted to be high. You are given a prescription for Norvasc 5 mg PO daily. - Follow up with PMD, Dr Engle and Dr Amezquita in 1 week. - Please return to the hospital if any concerns. Referrals: Hudson Engle MD [Staff Provider] - Roger Amezquita MD [Staff Provider] - <Pilar Briceño - Last Filed: 11/16/17 07:43> Provider - Provider Date of Admission: 11/07/17 14:54 Attending physician: Pilar Briceño MD Primary care physician: Dionte Mg MD Hospital Course - Lab Results Lab Results: Most Recent Lab Values WBC 6.5 10^3/ul (4.5-11.0) D 11/08/17 07:30 RBC 4.30 10^6/uL (3.5-6.1) 11/08/17 07:30 Hgb 12.1 g/dL (14.0-18.0) L 11/08/17 07:30 Hct 37.3 % (42.0-52.0) L 11/08/17 07:30 MCV 86.7 fl (80.0-105.0) 11/08/17 07:30 MCH 28.1 pg (25.0-35.0) 11/08/17 07:30 MCHC 32.4 g/dl (31.0-37.0) 11/08/17 07:30 RDW 13.4 % (11.5-14.5) 11/08/17 07:30 Plt Count 134 10^3/uL (120.0-450.0) 11/08/17 07:30 MPV 9.7 fl (7.0-11.0) 11/08/17 07:30 Gran % 69.9 % (50.0-68.0) H 11/08/17 07:30 Lymph % (Auto) 16.2 % (22.0-35.0) L 11/08/17 07:30 Wilkes % (Auto) 10.8 % (1.0-6.0) H 11/08/17 07:30 Eos % (Auto) 2.8 % (1.5-5.0) 11/08/17 07:30 Baso % (Auto) 0.3 % (0.0-3.0) 11/08/17 07:30 Gran # 4.55 (1.4-6.5) 11/08/17 07:30 Lymph # 1.1 (1.2-3.4) L 11/08/17 07:30 Wilkes # 0.7 (0.1-0.6) H 11/08/17 07:30 Eos # 0.2 (0.0-0.7) 11/08/17 07:30 Baso # 0.02 K/mm3 (0.0-2.0) 11/08/17 07:30 PT 10.9 SECONDS (9.4-12.5) 11/06/17 18:49 INR 1.00 (0.93-1.08) 11/06/17 18:49 APTT 25.7 Seconds (25.1-36.5) 11/06/17 18:49 Sodium 140 mmol/L (132-148) 11/08/17 07:30 Potassium 4.7 mmol/L (3.6-5.0) 11/08/17 07:30 Chloride 110 mmol/L (98-107) H 11/08/17 07:30 Carbon Dioxide 18 mmol/L (21-33) L 11/08/17 07:30 Anion Gap 16 (10-20) 11/08/17 07:30 BUN 52 mg/dL (7-21) H 11/08/17 07:30 Creatinine 5.3 mg/dl (0.8-1.5) H 11/08/17 07:30 Est GFR ( Amer) 13 11/08/17 07:30 Est GFR (Non-Af Amer) 11 11/08/17 07:30 Random Glucose 92 mg/dL (70-110) 11/08/17 07:30 Serum Osmolality 315 mosm/kg (272-300) H 11/06/17 18:23 Calcium 8.7 mg/dL (8.4-10.5) 11/08/17 07:30 Phosphorus 4.4 mg/dL (2.5-4.5) 11/07/17 06:30 Magnesium 2.0 mg/dL (1.7-2.2) 11/07/17 06:30 Total Bilirubin 0.4 mg/dL (0.2-1.3) 11/08/17 07:30 AST 18 U/L (17-59) 11/08/17 07:30 ALT 24 U/L (7-56) 11/08/17 07:30 Alkaline Phosphatase 48 U/L (38-126) 11/08/17 07:30 Total Protein 6.4 g/dL (5.8-8.3) 11/08/17 07:30 Albumin 3.4 g/dL (3.0-4.8) 11/08/17 07:30 Globulin 2.9 gm/dL 11/08/17 07:30 Albumin/Globulin Ratio 1.2 (1.1-1.8) 11/08/17 07:30 Free T4 1.08 ng/dL (0.78-2.19) 11/08/17 07:30 TSH 3rd Generation 0.71 mIU/mL (0.46-4.68) 11/08/17 07:30 Urine Color Red (YELLOW) 11/06/17 19:26 Urine Appearance Turbid (CLEAR) 11/06/17 19:26 Urine pH 7.5 (4.7-8.0) 11/06/17 19:26 Ur Specific Celoron 1.015 (1.005-1.035) 11/06/17 19:26 Urine Protein >=300 mg/dL (<30 mg/dL) H 11/06/17 19: Urine Glucose (UA) 100 mg/dL (NEGATIVE) H 11/06/17 19: Urine Ketones Trace mg/dL (NEGATIVE) H 11/06/17 19: Urine Blood Large (NEGATIVE) H 11/06/17 19: Urine Nitrate Negative (NEGATIVE) 11/06/17 19: Urine Bilirubin Negative (NEGATIVE) 11/06/17 19: Urine Urobilinogen 1.0 E.U./dL (<1 E.U./dL) H 11/06/17 19: Ur Leukocyte Esterase Small Luly/uL (NEGATIVE) H 11/06/17 19: Urine RBC Tntc /hpf (0-2) 11/06/17 19: Urine WBC 2 - 5 /hpf (0-6) 11/06/17 19: Ur Epithelial Cells 1 - 3 /hpf (0-5) 11/06/17 19: Urine Osmolality 343 mosm/kg (300-1000) 11/07/17 02:45 Ur Random Creatinine 35 mg/dL 11/07/17 02:45 Ur Random Sodium 111 meq/L 11/07/17 02:45 Ur Random Potassium 24.6 meq/L 11/07/17 02:45 Attending/Attestation - Attestation I have personally seen and examined this patient.: Yes I have fully participated in the care of the patient.: Yes I have reviewed all pertinent clinical information, including history, physical exam and plan: Yes Notes (Text): 11/16/17 07:37 67 year old male with no known past medical history who was initially referred from his pmd to building maintenance repairer for elevated creatinine in the office. His building maintenance repairer ordered a renal ultrasound which showed retention and hydronephrosis and he was referred to the urologist. Urologist placed a landaverde and sent to the hospital for admission for observation. Patient presented with kidney insufficiency (possibly chronic as per nephrology ) and hematuria. He was seen by nephrology who recommended urology evaluation; no need for dialysis at this time. Case was discussed with urology who recommended outpatient follow up. Patient is discharged home with landaverde to follow up with his pmd. Follow up with nephrology and urology. Needs close monitoring on kidney function. Started on norvasc for hypertension. Pilar Briceño MD Hospitalist.
--- NOTE | 2017-11-12 09:12 | PQF GENQUE ---
11/12/17 Dr. Briceño, Please document whether gross hematuria is due to Medellin catheter. Thank you. Clarification of your documentation is requested to better reflect the severity of illness and intensity of treatment of your patient. Indicators present [] Specify: [] [] Specify: [] [] Specify: [] [] Specify: [] Location in the medical record that reflects the above clinical findings: [] Treatment Provided: [] PHYSICIAN'S RESPONSE Based on your medical judgment of the clinical indicators outlined above please clarify the following: [] Practitioner response [] If unable to determine, please check the box, sign and date. Present On Admission (POA) Indicator: [] Present at the time of admission [] Not present at the time of admission [x] Clinically Undetermined In responding to this query, please exercise your independent professional judgment. The fact that a question is asked does not imply that any particular answer is desired or expected. Thank you for your clarification on this documentation. If you have any questions please call:[ ] * Thank you, [ ] marine fisheries technician ROMULO
== END 2017-11-08 12:56 | disposition home or self-care (01) | DRG 690 ==
LOC: ED 17:39 → ERH 20:05 → 5RSO 23:09 → OBSVTOIN 11-07 14:54
PROVIDERS: ADMIT Internal Medicine; ATTEND Internal Medicine
DX: N39.0 Urinary tract infection, site not specified (principal); N17.9 Acute kidney failure, unspecified; I12.0 Hypertensive chronic kidney disease with stage 5 chronic kidney disease or end stage renal disease; N18.5 Chronic kidney disease, stage 5; R33.9 Retention of urine, unspecified; N13.30 Unspecified hydronephrosis; R31.0 Gross hematuria; F41.9 Anxiety disorder, unspecified; F17.200 Nicotine dependence, unspecified, uncomplicated; Z82.49 Family history of ischemic heart disease and other diseases of the circulatory system; Z83.3 Family history of diabetes mellitus; E04.9 Nontoxic goiter, unspecified; R59.0 Localized enlarged lymph nodes

== ENCOUNTER 2018-03-09 11:00 | Day surgery (SDC) | payer MEDICARE ==
[2018-02-27 14:09] VITALS: BMI 25.4
[2018-03-09 12:11] LABS: CALCIUM 9.1 mg/dL (8.4-10.5)
[2018-03-09] MEDS ORDERED: Propofol 10 mg/ml Inj (20 ML) ONE (14:40)
[2018-03-09] MEDS ORDERED: Midazolam 2 MG/2 ML VIAL ONE (14:40)
[2018-03-09] MEDS ORDERED: cefTRIAXone (Rocephin) 1 gm Inj ONE (14:48)
[2018-03-09] MEDS ORDERED: HYDROmorphone 0.5 mg/0.5 ml ISec IVP PRN (15:35)
[2018-03-09] MEDS ORDERED: HYDROmorphone 0.5 mg/0.5 ml ISec ONE (15:40)
[2018-03-09] MEDS ORDERED: Lactated Ringer's 1,000 ML IV SCH (15:45)
[2018-03-09] MEDS ORDERED: Ciprofloxacin 400mg/200ml D5W 400 MG/200 ML BAG IVPB STA (16:03)
[2018-03-09] MEDS ORDERED: Oxycodone/Acetaminophen 5/325 mg Tab PO PRN (16:04)
[2018-03-09 16:29] VITALS: RESP 18; TEMP 98.1
[2018-03-09 16:51] VITALS: BP 150/84; PULSE 69; O2SAT 96
[2018-03-09] MEDS ORDERED: Ciprofloxacin 400mg/200ml D5W IVPB ONE (17:02)
--- NOTE | 2018-04-23 14:55 | PN ---
DATE: 03/09/2018 IMMEDIATE POSTOP NOTE SUBJECTIVE: The patient underwent a PVP GreenLight laser TURP. We have discussed the options with the patient. He is here today for a PVP GreenLight laser TURP. See the history and physical and the operative note. This is an immediate postop note. The patient's vital signs remain stable. Medellin catheter is in place, draining well. The patient is currently doing well. The plan is Medellin catheter straight drainage, antibiotics. Then, further plans will follow. This is an immediate postop note. Papa Engle MD
--- NOTE | 2018-04-23 18:45 | OP ---
PROCEDURE DATE: 03/09/2018 UROLOGY OPERATIVE NOTE PREOPERATIVE DIAGNOSES: Urinary retention, renal failure, azotemia, and hematuria. POSTOPERATIVE DIAGNOSES: Urinary retention, renal failure, azotemia, and hematuria. PROCEDURES: Photovaporization of the prostate with GreenLight laser. SURGEON: Papa Engle MD COMPLICATIONS: None. BLOOD LOSS: Less than 25 mL. FINDINGS: Normal anterior urethra. No strictures. Verumontanum is visually occlusive, about 3 cm. Large occlusive prostate. By the termination of the procedure, the patient is nicely wide opened and no other abnormalities appreciated. INDICATIONS: See history and physical for further details. A very pleasant gentleman with above history, here today for photovaporization of the prostate. My concerns I have discussed with him are that: One is a little bit long period of time and that the recoverability of the kidneys may be compromised, but we will do our best in terms of preventing dialysis. The other is some times in terms of the prostate being occlusive and then after this causing bladder damage that this procedure may not work well. We have also discussed the expectation of ejaculatory dysfunction, particularly retrograde ejaculation and that is often frequently permanent. After discussing all those options, we have also discussed the benefit of an improved flow of urination and we have discussed improvement of urinary habits and sleeping the nights better and emptying the bladder and discussed the other benefits to the procedure itself in terms of kidney function, in terms of urination, in terms of bowel, in terms of everything. Our recommendation is to proceed PVP, GreenLight laser. DESCRIPTION OF PROCEDURE: After obtaining informed consent, the patient was placed on a table. Routine monitoring placed. Time-out was called to confirm the patient positioning. Antibiotics given. We introduced the cystoscope via the urethra with direct visual obturator. We identified the landmarks. Anterior urethra was normal with no strictures. Verumontanum was visually occlusive about 3 cm. We identified our bladder landmarks. 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 We began between 5 and 7 at 80 [place] of energy. We worked away from 7 to 11 and 5 to 1 and eventually crossing anteriorly from 11 to 1. We kept checking the landmarks to make sure we had good hemostasis. In and out, we used the coagulation. On further evaluation, he is nicely wide open, the verumontanum is intact, and the patient looked very open. There is no bleeding. We turned off all the water. Checked our supplies. We then put a Medellin catheter via the urethra, we put in with mild traction. Brought the patient to the recovery room in stable condition. Papa Engle MD
--- NOTE | 2018-04-24 01:17 | HP ---
UROLOGY ADMISSION HISTORY AND PHYSICAL REASON FOR ADMISSION: For PVP GreenLight Laser TURP. HISTORY OF PRESENT ILLNESS: Mr. Dunn is a very pleasant gentleman, he is a 67-year-old, he is in retention, he has been in retention for quite some time. He also has renal failure. The issue is whether or not we can empty up the bladder and keep the creatinine from getting worse. The patient is here today for a PVP GreenLight Laser TURP. He also has medical doctor. He is not currently on dialysis, but we were very concerned that this is a prognosis for dialysis. PAST MEDICAL AND SURGICAL HISTORY: As listed on the chart. He is a patient of REVIEW OF SYSTEMS: As listed above. No weight loss, chest pain or shortness of breath. MEDICATIONS: See chart. ALLERGIES: . PHYSICAL EXAMINATION: GENERAL: A well-nourished male in no apparent distress. VITAL SIGNS: Within normal limits as listed in the chart. LUNGS: Clear. ABDOMEN: Overall soft, nontender. No flank masses appreciated. GENITOURINARY: Normal phallus without discharge. No testicular masses. RECTAL: A 30 g prostate, soft and smooth. DIAGNOSES: Urinary retention, renal failure, azotemia, voiding dysfunction and gross hematuria. We discussed the options. At this point, very concerned that he is going to end up on dialysis at some point. But at this point, we are going try to preserve the kidney as much as possible by emptying up the bladder better. Towards this end, we have done fine diagnostic studies. The plan is the patient is going to go on PVP GreenLight Laser and then further plans will follow depending what we find. Papa Engle MD
--- NOTE | 2018-04-30 11:57 | PN ---
DATE: 03/09/2018 IMMEDIATE POSTOP NOTE See the operative note. PREOPERATIVE DIAGNOSIS: Urinary retention, hematuria, azotemia. POSTOPERATIVE DIAGNOSIS: Urinary retention, hematuria, azotemia. PROCEDURE: PVP GreenLight laser TURP. The patient is in the recovery room in stable condition. Med[place]in catheter is in place and draining well. There were no complications. . Papa Engle MD
--- NOTE | 2018-05-01 08:11 | OP ---
PROCEDURE DATE: 03/09/2018 UROLOGY OPERATIVE REPORT PREOPERATIVE DIAGNOSES: Urinary retention, renal failure, azotemia, incomplete bladder emptying, hematuria, significant voiding dysfunction with multiple medical problems. POSTOPERATIVE DIAGNOSES: Urinary retention, renal failure, azotemia, incomplete bladder emptying, hematuria, significant voiding dysfunction with multiple medical problems. PROCEDURES: Photovaporization GreenLight laser energy, transurethral resection of the prostate. SURGEON: Papa Engle MD ESTIMATED BLOOD LOSS: Less than 25 mL. COMPLICATIONS: There were no complications. At the termination of the procedure, the patient is opened from his prostatic verumontanum. DRAIN: Medellin catheter. INDICATIONS FOR THE PROCEDURE: See history and physical for further details. Very pleasant gentleman who eventually already in Renal with marked significant abnormal BUN and creatinine. 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 The patient has incomplete bladder emptying amount of time, to the point he has tremendous bladder capacity without sensation to void. Despite that, we have discussed various options and here today for the above-listed procedure in the hope that we will have the patient with better bladder emptying. We have discussed other options including indwelling Medellin catheter, clean intermittent catheterization (that was my best recommendation). Also, discussed the possibility of a suprapubic catheter insertion and changing it periodically. He is otherwise a very young and active gentleman. So, my recommendation would be intermittent catheterization in an effort to keep his bladder emptying and perhaps prevent further renal damage. However, the patient did not think that he will be able to do this on a regular basis in an effort to open the prostate. We have discussed the options and he is here today in an effort perhaps this will be helping with emptying his bladder better even if the bladder muscles are , we discussed this at great length. UROLOGY FINDINGS: Anterior urethra is normal with no strictures. Verumontanum is visually occlusive . No bladder tumors or stones are noted. At the termination of the procedure, the patient is wide open. DESCRIPTION OF PROCEDURE: After obtaining informed consent, the patient was placed on the table. Routine monitoring devices placed. Time-out was called to confirm the patient's positioning, etc. Time-out was called. Antibiotic prophylaxis was used. The patient was positioned into lithotomy position. We introduced the 22-Icelandic scope with visual obturator. Landmarks noted. No strictures noted. Verumontanum is visually occlusive. We began with 80 jordan of energy between 5 and 7 and opened up along its floor. We then turned our attention between 7 and 11 and 5 and 1 and then subsequently between the 11 and 1 and we worked away from proximal to distal keeping landmarks in mind. At the termination of the procedure, we took multiple pictures . The patient was opened from verumontanum up to the bladder neck. All hemostasis was achieved. We inserted a Medellin catheter via urethra and placed about 60 mL of balloon. There is mild traction. Overall, the patient tolerated the procedure well without complications. Papa Engle MD
== END 2018-03-09 19:15 | disposition home or self-care (01) ==
LOC: SDS 11:00
PROVIDERS: ATTEND Urology
DX: R33.9 Retention of urine, unspecified (principal); R31.0 Gross hematuria; N19 Unspecified kidney failure; R79.89 Other specified abnormal findings of blood chemistry
CPT/HCPCS: 36415; 52648; 80048; A4358; J0696; J0744; J1170; J2250; J2704; J3010; J7030; J7120 ×2